=== PATIENT | female | born 1940 | race Caucasian/White ===

== ENCOUNTER → 2017-04-19 | Outpatient (CLI) | payer OTHER ==
[~2017-04-19] MED LIST: DYAZIDE 37.5/251 CAP PO; IBUPROFEN PO; MULTI-VITAMIN1 TAB PO
--- NOTE | ~2017-04-19 | US98 ---
[facility] A Service of [facility] & [facility] RADIOLOGY TEXT RESULTS PATIENT: CAMMIE VERDE LOCATION: [facility] : 40 UNIT #: [id number] AGE: [address]: Kati Rodriguez SEX: F ORDER DR: [id number] [facility] [address] [place], [place] [address] [id number] O MR#: [id number] Acc #: [id number] NAME: CAMMIE VERDE : 1940 SEX: F STUDY DATE/TIME: 04/19/2017 16:12 UNIT: [facility] ROOM: STUDY DESCRIPTION: US Pelvic Non-OB Complete Attending Physician: Kati Rodriguez A.P.R.N. Ordering Physician: Kati Rodriguez A.P.R.N. Primary Care Physician: Kati Rodriguez A.P.R.N. MEDICAL IMAGING REPORT This report is preliminary unless electronic signature is present EXAM Pelvic ultrasound HISTORY Abdomen distension. Symptoms for 1 week. Uterine enlargement on exam 04/12/2017. FINDINGS Ultrasound examination of the pelvis was performed with transabdominal and endovaginal technique. The uterine contour is normal. No uterine mass or enlargement. The uterus measures approximately 3 cm x 3.6 cm in AP and transverse dimensions and close to 6 cm in length. Fluid within the endocervical canal, and probable nabothian cysts in the cervix. Correlation to physical exam findings is recommended. Neither ovary is identified. No free fluid in the pelvis. No endometrial thickening. The endometrium measures close to 5 mm in thickness. IMPRESSION 1. No uterine mass or enlargement. 2. Fluid in the endocervical canal and probable cyst within the cervix. The fluid in the cervical canal measures close to 2 cm in maximal dimension. Correlation to physical exam findings is recommended. 3. No endometrial thickening or endometrial fluid. 4. Neither ovary is identified. No free fluid in the pelvis. Dictated by... Alejandro Carty M.D. THIS IS AN ELECTRONICALLY VERIFIED REPORT Alejandro Carty M.D. at 04/21/2017 2:43 PM [facility] A Service of [facility] & [facility] RADIOLOGY TEXT RESULTS PATIENT: CAMMIE VERDE LOCATION: [facility] : 40 UNIT #: [id number] AGE: [address]: Kati Rodriguez SEX: F ORDER DR: CHARLES/ana cristina TD: 04/21/2017 01:57 JOB #: [id number] MEDICAL IMAGING REPORT Page 1 of 1 COPY
--- NOTE | ~2017-04-19 | MY29 ---
[facility] A Service of [facility] RADIOLOGY TEXT RESULTS PATIENT: CAMMIE VERDE LOCATION: [facility] : 40 UNIT #: [id number] AGE: [address]: Kati Rodriguez SEX: F ORDER DR: [id number] [facility] [address] [place], [place] [address] [id number] O MR#: [id number] Acc #: [id number] NAME: CAMMIE VERDE : 1940 SEX: F STUDY DATE/TIME: 04/19/2017 16:20 UNIT: [facility] ROOM: STUDY DESCRIPTION: MY LIOR SCREENING W/ CAD BILAT Attending Physician: Kati Rodriguez A.P.R.N. Ordering Physician: Kati Rodriguez A.P.R.N. Primary Care Physician: Kati Rodriguez A.P.R.N. MEDICAL IMAGING REPORT This report is preliminary unless electronic signature is present EXAM Digital screening mammogram, 04/19/2017 HISTORY 77-year-old woman no risk elevation. Annual screening. COMPARISON Mammograms date to 12/19/2005 with most recent 03/28/2016. FINDINGS Digital imaging of each breast was completed utilizing a two-view examination of each breast in craniocaudal and mediolateral-oblique projections. Review and interpretation of digital mammograms include a second review in conjunction with FDA-approved CAD device. There is a normal parenchymal presentation bilaterally consistent with the patient's age. There are no breast masses imaged and no parenchymal asymmetry is visualized. There are no suspicious microcalcifications and I see no focal architectural disturbance. IMPRESSION Negative screening digital mammogram. One-year followup recommended. Patients over the age of 40 are entered into a reminder system with target due date for the next mammogram. A result letter will also be sent to the patient. BIRADS: 1 Negative ADDENDUM Breast parenchyma is fatty replaced. Dictated by... Vince Dukes M.D. [facility] A Service of [facility] RADIOLOGY TEXT RESULTS PATIENT: CAMMIE VERDE LOCATION: [facility] : 40 UNIT #: [id number] AGE: [address]: Kati Rodriguez SEX: F ORDER DR: THIS IS AN ELECTRONICALLY VERIFIED REPORT Vince Dukes M.D. at 04/20/2017 12:09 PM Soniya TD: 04/20/2017 10:21 JOB #: [id number] MEDICAL IMAGING REPORT Page 1 of 1 COPY
== END | disposition home or self-care (01) ==
LOC: CWCC 16:00
DX: Z12.31 Encounter for screening mammogram for malignant neoplasm of breast (principal); N85.2 Hypertrophy of uterus; R92.8 Other abnormal and inconclusive findings on diagnostic imaging of breast; N85.8 Other specified noninflammatory disorders of uterus
CPT/HCPCS: 76830; 76856; G0202